=== PATIENT | female | born 1955 | race Caucasian/White ===

== ENCOUNTER 2017-03-01 06:55 | Outpatient (CLI) | payer OTHER | END 2017-03-01 20:12 | disposition home or self-care (01) | LOC: MLB 06:55 | PROVIDERS: ATTEND Obstetrics & Gynecology | DX: Z01.419 Encounter for gynecological examination (general) (routine) without abnormal findings (principal) ==

== ENCOUNTER 2017-03-10 06:45 | Outpatient (CLI) | payer OTHER ==
[2017-03-10 07:19] LABS: ALBUMIN 3.8 g/dL (3.4-5.0); ANION GAP 10.1 (8-16); CARBON DIOXIDE 31.4 mmol/L (21-32); CHOL/HDL RATIO 2.1 (1-4.5); CREATININE 0.9 mg/dL (0.6-1.3); POTASSIUM 4.5 mmol/L (3.5-5.1); TOTAL BILIRUBIN 0.4 mg/dL (0.0-1.0)
== END 2017-03-10 20:33 | disposition home or self-care (01) ==
LOC: MLB 06:45
PROVIDERS: ATTEND Obstetrics & Gynecology
DX: R53.83 Other fatigue (principal)
CPT/HCPCS: 36415; 80053